=== PATIENT | female | born 1965 | race Caucasian/White ===

== ENCOUNTER 2017-01-03 18:43 | Emergency (ER) | payer MEDICARE ==
[2017-01-03 19:10] LABS: BASOPHIL 0.1 % (0-2); EOSINOPHIL 0 % (0-5); HCT 47.6 % (37.0-47.0); HGB 16.9 g/dl (12.5-16.0); LYMPHOCYTE 7.4 % (15-48); MCH 28.9 pg (25.0-31.0); MCHC 35.5 g/dL (32.0-36.0); MCV 81.5 fL (78.0-100.0); MONOCYTE 0.8 % (0-12); MPV 10.4 fL (6.0-9.5); NEUTROPHIL 91.7 % (41-80); PLT 403 K/uL (150-400); RBC 5.84 M/uL (4.20-5.40); RDW 16.5 % (11.5-14.0); WBC 14.7 K/uL (4.0-10.5)
[2017-01-03 19:20] LABS: ALBUMIN 4.1 g/dL (3.5-5.0); BILIRUBIN - TOTAL 0.2 mg/dL (0.1-1.0); CREATININE 0.6 mg/dL (0.5-1.0); GLOBULIN (CALCULATION) 3.4 g/dL (2.2-4.2); POTASSIUM 4.1 mmol/L (3.5-5.1); TOTAL PROTEIN 7.5 g/dL (6.4-8.3)
== END 2017-01-03 20:25 | disposition home or self-care (01) ==
LOC: FER 18:43
PROVIDERS: Nurse Practitioner
DX: J40 Bronchitis, not specified as acute or chronic (principal); J45.909 Unspecified asthma, uncomplicated; J44.9 Chronic obstructive pulmonary disease, unspecified; I10 Essential (primary) hypertension; M06.9 Rheumatoid arthritis, unspecified; F17.210 Nicotine dependence, cigarettes, uncomplicated; Z88.0 Allergy status to penicillin; Z88.6 Allergy status to analgesic agent; Z79.51 Long term (current) use of inhaled steroids; Z79.899 Other long term (current) drug therapy
CPT/HCPCS: 36415; 71010; 80053; 83880; 85025; 85379; 93005; 94640; 94760